=== PATIENT | male | born 1940 | race Caucasian/White ===

== ENCOUNTER 2017-06-30 09:00 | Outpatient (RCR) | payer MEDICARE ==
[2017-05-12 11:22] VITALS: BP 122/70
[2017-05-12 11:23] VITALS: BP 140/70
--- NOTE | 2017-05-12 11:57 | CARDIAC REHAB PLAN OF CARE ---
Physician: Maikel BARRERA Patient is being seen: Ezekiel Donis Medical Diagnosis: Stent x 1 Date of Initial Evaluation: 2016 SHORT TERM GOALS Short Term Goals Due Date: 06/12/17 Short Term Goals: 77 year old male phase II patient comes to cardiac rehab after receiving one stent (LAD) on April 29, 2017. Patient had symptoms of chest tightness and some nausea during exercise and during exam it was found that he needed a second stent placed in the LAD next to one stent placed 7 years ago. Previous medical history includes some angina prior to receiving the first stent. Patient has had left shoulder replacement, and torn meniscus in his right knee. Patient did cardiac rehab in [place] in 2009. Patient is otherwise healthy and very active exercising regularly up to 5 times a week. Goals are to maintain consistent cardio exercise each week along with weight resistance at least twice a week. Patient will also continue to eat a heart healthy diet, and lose some weight from the 185 pounds to his healthy max BMI weight of 170 pounds. 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 Patient will also remain consistent with heart healthy meals and adjust calorie intake to allow for weight loss towards his 170 pound goal weight. Care Home Goals Met: Care Home Goals Not Met Due To: PATIENT'S GOALS Patient Goals Due Date: 06/12/17 Patient Goals: Patient goals are to get into better shape, improve health, and be able to remain active. Patient wants to gain confidence in heart health to be able to return to previous activities. Patient Goals Met: Patient Goals Not Met Due To: Cardiac Rehabilitation Plan of Care Comment: Cardiac rehab staff will monitor, record, and evaluate vitals, ECG, and exercise results to provide the best plan of care for the patient throughout the 36 visit phase II program. CR staff will educate and motivate the patient during visits for rehab. TYRELL
[2017-05-14 13:28] VITALS: BP_SYST 120; BP_SYST 138; BP_DIAS 66; BP_DIAS 70
[2017-05-16 17:59] VITALS: BP 138/70
[2017-05-16 18:00] VITALS: BP 110/64
[2017-05-19 17:27] VITALS: BP 124/64
[2017-05-19 17:28] VITALS: BP 136/70
[2017-05-21 16:39] VITALS: BP 124/60
[2017-05-21 16:40] VITALS: BP 122/62
[2017-05-23 12:54] VITALS: BP 128/66
[2017-05-23 12:55] VITALS: BP 130/72
[2017-05-26 13:01] VITALS: BP 144/76
[2017-05-26 13:02] VITALS: BP 152/72
[2017-05-28 12:58] VITALS: BP 128/68
[2017-05-28 12:59] VITALS: BP 132/68
[2017-05-30 17:24] VITALS: BP 112/68
[2017-05-30 17:26] VITALS: BP 140/64
[2017-06-02 17:20] VITALS: BP 118/68
[2017-06-04 18:13] VITALS: BP 130/68
[2017-06-04 18:14] VITALS: BP 138/80
[2017-06-09 13:14] VITALS: BP 131/70
[2017-06-09 13:15] VITALS: BP 120/68
[2017-06-11 13:07] VITALS: BP 126/64
[2017-06-11 13:08] VITALS: BP 146/70
--- NOTE | 2017-06-12 16:09 | CARDIAC REHAB PLAN OF CARE ---
Physician: Maikel BARRERA Patient is being seen: Ezekiel Donis Medical Diagnosis: Stent x 1 Date of Initial Evaluation: 05/12/2017 SHORT TERM GOALS Short Term Goals Due Date: 07/12/17 Short Term Goals: 77 year old male phase II patient comes to cardiac rehab after receiving one stent (LAD) on April 29, 2017. Patient had symptoms of chest tightness and some nausea during exercise and during exam it was found that he needed a second stent placed in the LAD next to one stent placed 7 years ago. Previous medical history includes some angina prior to receiving the first stent. Patient has had left shoulder replacement, and torn meniscus in his right knee. Patient did cardiac rehab in [place] in 2009. Patient is otherwise healthy and very active exercising regularly up to 5 times a week. Goals are to maintain consistent cardio exercise each week along with weight resistance at least twice a week. Patient will also continue to eat a heart healthy diet, and lose some weight from the 185 pounds to his healthy max BMI weight of 170 pounds. Short Term Goals Met: Patient has made 12 visits to cardiac rehab and tolerates 35 minutes on the treadmill (3.9 METs), 20 minutes on the upright bike (3.7 METs), followed by a 4 pound dumbbell upper body workout. Patient has made nice steady progress in increasing duration and intensity of exercise. 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 Patient will continue to eat heart healthy meals. Prison Goals Met: Patient is meeting the goals of consistent exercise each week and is increasing duration and intesity of exercise. Prison Goals Not Met Due To: PATIENT'S GOALS Patient Goals Due Date: 07/12/17 Patient Goals: Patient goals remain to improve cardiac and overall health and gain confidence in heart health to remain active in the [employer]. Patient Goals Met: Patient Goals Not Met Due To: Cardiac rehab staff will monitor, record, and evaluate vitals, ECG, and exercise results to provide the best plan of care for the patient throughout the 36 visit phase II program. CR staff will educate and motivate the patient during visits for rehab. Cardiac Rehabilitation Plan of Care Comment: Cardiac rehab staff will continue to monitor, record, and evaluate vitals, ECG, and exercise results to provide the best plan of care throughout the 36 visit phase II program. CR staff will motivate and educate the patient during visits for rehab. TYRELL
[2017-06-16 13:25] VITALS: BP 134/74
[2017-06-16 13:26] VITALS: BP 130/68
[2017-06-18 13:05] VITALS: BP 132/68
[2017-06-18 13:06] VITALS: BP 138/68
[2017-06-25 12:56] VITALS: BP_SYST 128; BP_SYST 130; BP_DIAS 76
[~2017-06-30 09:00] MED LIST: AMLO-96 PO; ASPI-1471 PO; LISI20TA29 PO
[2017-06-30 17:58] VITALS: BP 106/64
[2017-06-30 17:59] VITALS: BP 130/70
--- NOTE | 2017-07-11 19:01 | CARDIAC REHAB PLAN OF CARE ---
Physician: Maikel BARRERA Patient is being seen: Ezekiel Donis Medical Diagnosis: Stent x 1 Date of Initial Evaluation: 05/12/2017 SHORT TERM GOALS Short Term Goals Due Date: 08/12/17 Short Term Goals: 77 year old male phase II patient comes to cardiac rehab after receiving one stent (LAD) on April 29, 2017. Patient had symptoms of chest tightness and some nausea during exercise and during exam it was found that he needed a second stent placed in the LAD next to one stent placed 7 years ago. Previous medical history includes some angina prior to receiving the first stent. Patient has had left shoulder replacement, and torn meniscus in his right knee. Patient did cardiac rehab in [place] in 2009. Patient is otherwise healthy and very active exercising regularly up to 5 times a week. Goals are to maintain consistent cardio exercise each week along with weight resistance at least twice a week. Patient will also continue to eat a heart healthy diet, and lose some weight from the 185 pounds to his healthy max BMI weight of 170 pounds. Short Term Goals Met: Patient has made 17 visits for cardiac rehab and tolerates 50 minutes of a moderate level (3.0-6.0 METs) cardio exercise along with weight resistance exercise. During exercise SPO2 levels remain in the 90' s on room air and the secured entrance monitor shows a NSR without ectopy and rates of 74-96. 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 Patient will continue to eat heart healthy meals. Director Of Physiotherapy Services Goals Met: Patient has increased duration and intensity of exercise. Director Of Physiotherapy Services Goals Not Met Due To: PATIENT'S GOALS Patient Goals Due Date: 08/12/17 Patient Goals: Patient goals are to improve cardiac and overall health and to remain active. Patient wants to stay active in the [employer]. Patient Goals Met: Patient still participates in the [employer]. Patient Goals Not Met Due To: Cardiac rehab staff will monitor, record, and evaluate vitals, ECG, and exercise results to provide the best plan of care for the patient throughout the 36 visit phase II program. CR staff will educate and motivate the patient during visits for rehab. Cardiac Rehabilitation Plan of Care Comment: Cardiac rehab staff will continue to monitor, record, and evaluate vitals, ECG, and exercise results to provide the best plan of care for the patient throughout the 36 visit phase II program. CR staff will motivate and educate the patient during visits for rehab. TYRELL
== END 2017-06-30 18:00 | disposition home or self-care (01) ==
LOC: CARD 09:00
PROVIDERS: ATTEND Family Medicine
DX: Z95.5 Presence of coronary angioplasty implant and graft (principal); Z96.612 Presence of left artificial shoulder joint
CPT/HCPCS: 93798

== ENCOUNTER → 2017-09-05 | Outpatient (CLI) | payer MEDICARE | LOC: LAB 08:30 | PROVIDERS: ATTEND Internal Medicine | DX: E78.5 Hyperlipidemia, unspecified (principal); I25.110 Atherosclerotic heart disease of native coronary artery with unstable angina pectoris | CPT/HCPCS: 36415; 82040; 82247; 82310; 82374; 82435; 82465; 82565; 82947; 83718; 84075; 84132; 84155; 84295; 84450; 84460; 84478; 84520 ==

== ENCOUNTER → 2017-12-03 | Outpatient (CLI) | payer MEDICARE | LOC: LAB 08:17 | PROVIDERS: ATTEND Internal Medicine | DX: E78.5 Hyperlipidemia, unspecified (principal) | CPT/HCPCS: 36415; 82465; 83718; 84478 ==

== ENCOUNTER → 2018-04-13 | Outpatient (REF) | payer MEDICARE ==
[~2018-04-13] MED LIST changes: +AMLO-111 PO; -AMLO-96 PO
== END ==
LOC: ZZSENDIN 12:00
PROVIDERS: ATTEND Family Medicine
DX: D04.4 Carcinoma in situ of skin of scalp and neck (principal)
CPT/HCPCS: 88305

== ENCOUNTER → 2018-05-21 | Outpatient (CLI) | payer MEDICARE | LOC: LAB 08:24 | PROVIDERS: ATTEND Internal Medicine | DX: E78.5 Hyperlipidemia, unspecified (principal); I25.110 Atherosclerotic heart disease of native coronary artery with unstable angina pectoris | CPT/HCPCS: 36415; 82040; 82247; 82310; 82374; 82435; 82465; 82565; 82947; 83718; 84075; 84132; 84155; 84295; 84450; 84460; 84478; 84520 ==

== ENCOUNTER 2018-12-31 00:12 | Day surgery (SDC) | payer MEDICARE ==
[~2018-12-31] VITALS: Ht 177.8 cm; Wt 77.1 kg
[~2018-12-31 00:12] MED LIST changes: -AMLO-111 PO; +AMLO-125 PO; +CHOL10005 PO; +GARL1TAB9 PO; +METO25TA93 PO; +UBID100C48 PO
[2018-12-31] MEDS ORDERED: LIDOCAINE MPF 1% 5 ML VIAL ONE (06:58)
[2018-12-31] MEDS ORDERED: PROPOFOL(*)1000 MG/100 ML VIAL 100 ML ONE (06:59)
[2018-12-31 09:35] VITALS: BP 147/82
[2018-12-31] MEDS ORDERED: NORMOSOL R SOLN(*) 1000 ML BAG 1,000 ML IV PRN (09:40)
[2018-12-31] MEDS ORDERED: LIDOCAINE/SOD BICARB 8.4% SYR ID ONE (09:40)
[2018-12-31 10:58] VITALS: BP 102/60
[2018-12-31 11:18] VITALS: BP 112/70
[2018-12-31 11:33] VITALS: BP 123/78
[2018-12-31 11:37] VITALS: BP 119/81
[2018-12-31 11:39] VITALS: BP 134/79
== END 2018-12-31 12:30 | disposition home or self-care (01) ==
LOC: OR 00:12
PROVIDERS: ATTEND Family Medicine
DX: Z12.11 Encounter for screening for malignant neoplasm of colon (principal); I10 Essential (primary) hypertension; I25.10 Atherosclerotic heart disease of native coronary artery without angina pectoris
CPT/HCPCS: 00812; 45378; J2001; J2704